=== PATIENT | male | born 1970 | race African-American/Black ===

== ENCOUNTER 2018-02-11 09:04 | Emergency (ER) | payer BC ==
--- NOTE | 2018-02-11 10:44 | EDPHYS ---
Physician Documentation [facility] Name: Jesusita Barker Age: 48 yrs Sex: Male : 1970 Arrival Date: 02/11/2018 Time: 09:07 Bed 11 Private MD: None, None ED Physician Tre sEcudero HPI: 02/11 11:02 This 48 yrs old Black Male presents to ER via Ambulatory with complaints of Swollen Ear.jr8 11:02 Onset: The symptoms/episode began/occurred acutely, yesterday. Associated signs and jr8 symptoms: The patient has no apparent associated signs or symptoms. Modifying factors: The patient symptoms are alleviated by nothing, the patient symptoms are aggravated by nothing. The patient has not experienced similar symptoms in the past. The patient has not recently seen a physician. Patient stated that he noticed his let ear to be swollen. No pain to touch or manipulation . 11:02 Modifying factors: The symptoms are alleviated by nothing, the symptoms are aggravated jr8 by nothing. Associated signs and symptoms: The patient has no apparent associated signs or symptoms. Severity of symptoms: At their worst the symptoms were mild in the emergency department the symptoms are unchanged. Historical: - Allergies: 09:20 NKA; iw - Home Meds: 09:20 lisinopril 10 mg Oral tab 1 tab once daily [Active]; aspirin 81 mg Oral TbEC 1 tab once iw daily [Active]; Prilosec Oral [Active]; - PMHx: 09:20 Hypertension; iw - PSHx: 09:20 None; iw - Immunization history:: Adult Immunizations not up to date. - Social history:: Smoking status: Patient uses tobacco products, denies chronic smoking, but will smoke occasionally. - Ebola Screening: : Patient negative for fever greater than or equal to 101.5 degrees Fahrenheit, and additional compatible Ebola Virus Disease symptoms Patient denies exposure to infectious person Patient denies travel to an Ebola-affected area in the 21 days before illness onset No symptoms or risks identified at this time. ROS: 11:02 Eyes: Negative for injury, pain, redness, and discharge, Neck: Negative for injury, jr8 pain, and swelling, Cardiovascular: Negative for chest pain, palpitations, and edema, Respiratory: Negative for shortness of breath, cough, wheezing, and pleuritic chest pain, Abdomen/GI: Negative for abdominal pain, nausea, vomiting, diarrhea, and constipation, Back: Negative for injury and pain, MS/Extremity: Negative for injury and deformity, Skin: Negative for injury, rash, and discoloration, Neuro: Negative for headache, weakness, numbness, tingling, and seizure. 11:02 ENT: Positive for swelling to left ear, Negative for drainage from ear(s), ear pain, tinnitus, nasal discharge, rhinorrhea, sinus congestion, sinus pain, sore throat, dental pain, difficulty swallowing, difficulty handling secretions. Exam: 11:02 Head/Face: Normocephalic, atraumatic. Eyes: Pupils equal round and reactive to light, jr8 extra-ocular motions intact. Lids and lashes normal. Conjunctiva and sclera are non-icteric and not injected. Cornea within normal limits. Periorbital areas with no swelling, redness, or edema. Neck: Trachea midline, no thyromegaly or masses palpated, and no cervical lymphadenopathy. Supple, full range of motion without nuchal rigidity, or vertebral point tenderness. No Meningismus. Cardiovascular: Regular rate and rhythm with a normal S1 and S2. No gallops, murmurs, or rubs. Normal PMI, no JVD. No pulse deficits. Respiratory: Lungs have equal breath sounds bilaterally, clear to auscultation and percussion. No rales, rhonchi or wheezes noted. No increased work of breathing, no retractions or nasal flaring. Abdomen/GI: Soft, non-tender, with normal bowel sounds. No distension or tympany. No guarding or rebound. No evidence of tenderness throughout. Back: No spinal tenderness. No costovertebral tenderness. Full range of motion. Skin: Warm, dry with normal turgor. Normal color with no rashes, no lesions, and no evidence of cellulitis. MS/ Extremity: Pulses equal, no cyanosis. Neurovascular intact. Full, normal range of motion. Neuro: Awake and alert, GCS 15, oriented to person, place, time, and situation. Cranial nerves II-XII grossly intact. Motor strength 5/5 in all extremities. Sensory grossly intact. Cerebellar exam normal. Normal gait. 11:02 ENT: Exam is negative for earache, ear discharge, TM abnormalities, nasal discharge, sinus tenderness, enlarged tonsils, pharyngitis, dental infection, External ear(s): fluctuant non erythematic region to left pinna. No bruising or external trauma noted . Vital Signs: 09:20 BP 163 / 98; Pulse 93; Resp 16; Temp 98.2; Pulse Ox 98% on R/A; Weight 91.63 kg; Height iw 5 ft. 9 in. (175.26 cm); Pain 0/10; 09:20 Body Mass Index 29.83 (91.63 kg, 175.26 cm) iw Procedures: 11:02 I \T\ D: Incision and drainage was performed for an abscess of the left pinna Prepped jr8 with Betadine, Incised with 18 G needle aspiration. Drained small amount bloody fluid. Dressing: sterile 4x4 gauze, pressure dressing aspirated 1 1/2 cc of blood. MDM: 09:25 Patient medically screened. jr8 10:42 Data reviewed: vital signs, nurses notes, and as a result, I will discharge patient. jr8 Data interpreted: Pulse oximetry: on room air is 98 %. Interpretation: normal. Counseling: I had a detailed discussion with the patient and/or guardian regarding: the historical points, exam findings, and any diagnostic results supporting the discharge/admit diagnosis, the need for outpatient follow up, an ENT specialist, to return to the emergency department if symptoms worsen or persist or if there are any questions or concerns that arise at home. Administered Medications: No medications were administered Disposition: 14:00 Co-signature as Attending Physician, Tre Escudero MD I agree with the assessment and shabnam plan of care. Disposition: 02/11/18 10:43 Discharged to Home. Impression: Hematoma of Vasquez . - Condition is Stable. - Discharge Instructions: Hematoma. - Prescriptions for Keflex 500 mg Oral Capsule - take 1 capsule by ORAL route every 8 hours for 5 days; 15 capsule. - Work release form, Medication Reconciliation Form, Thank You Letter, Antibiotic Education, Prescription Opioid Use form. - Follow up: Tati Howard MD; When: As needed; Reason: Recheck today's complaints, Continuance of care, Re-evaluation by your physician. - Problem is new. - Symptoms have improved. Signatures: Tre Escudero MD MD cha Williams, Irene, RN RN iw Gaetano Garcia PA PA jr8 Corrections: (The following items were deleted from the chart) 10:50 10:43 02/11/2018 10:43 Discharged to Home. Impression: Hematoma of Vasquez . Condition is iw Stable. Forms are Medication Reconciliation Form, Thank You Letter, Antibiotic Education, Prescription Opioid Use. Follow up: Tati Howard; When: As needed; Reason: Recheck today's complaints, Continuance of care, Re-evaluation by your physician. Problem is new. Symptoms have improved. jr8
--- NOTE | 2018-02-11 10:44 | ER ---
Nurse's Notes [facility] Name: Jesusita Barker Age: 48 yrs Sex: Male : 1970 Arrival Date: 02/11/2018 Time: 09:07 Bed 11 Private MD: None, None Diagnosis: Hematoma of [place]quez Presentation: 02/11 09:19 Presenting complaint: Patient states: swelling to left ear X 1 month. Transition of iw care: patient was not received from another setting of care. Onset of symptoms was December 2017. Risk Assessment: Do you want to hurt yourself or someone else? Patient reports no desire to harm self or others. Initial Sepsis Screen: Does the patient meet any 2 criteria? No. Patient's initial sepsis screen is negative. Does the patient have a suspected source of infection? No. Patient's initial sepsis screen is negative. Care prior to arrival: None. 09:19 Method Of Arrival: Ambulatory iw 09:19 Acuity: MALU 4 iw Historical: - Allergies: 09:20 NKA; iw - Home Meds: 09:20 lisinopril 10 mg Oral tab 1 tab once daily [Active]; aspirin 81 mg Oral TbEC 1 tab once iw daily [Active]; Prilosec Oral [Active]; - PMHx: 09:20 Hypertension; iw - PSHx: 09:20 None; iw - Immunization history:: Adult Immunizations not up to date. - Social history:: Smoking status: Patient uses tobacco products, denies chronic smoking, but will smoke occasionally. - Ebola Screening: : Patient negative for fever greater than or equal to 101.5 degrees Fahrenheit, and additional compatible Ebola Virus Disease symptoms Patient denies exposure to infectious person Patient denies travel to an Ebola-affected area in the 21 days before illness onset No symptoms or risks identified at this time. Screenin:21 Abuse screen: Denies threats or abuse. Denies injuries from another. Nutritional iw screening: No deficits noted. Tuberculosis screening: No symptoms or risk factors identified. Fall Risk None identified. Assessment: 09:21 General: Appears in no apparent distress. Behavior is calm, cooperative. Pain: iw Complains of pain in left ear. Neuro: Level of Consciousness is awake, alert, obeys commands, Oriented to person, place, time, situation, Moves all extremities. Full function. Cardiovascular: Patient's skin is warm and dry. Respiratory: Airway is patent Respiratory effort is even, unlabored. Derm: Skin is intact, is healthy with good turgor. Musculoskeletal: Range of motion: intact in all extremities. Vital Signs: 09:20 BP 163 / 98; Pulse 93; Resp 16; Temp 98.2; Pulse Ox 98% on R/A; Weight 91.63 kg; Height iw 5 ft. 9 in. (175.26 cm); Pain 0/10; 09:20 Body Mass Index 29.83 (91.63 kg, 175.26 cm) iw ED Course: 09:07 Patient arrived in ED. mr 09:08 None, None is Private Physician. mr 09:19 Triage completed. iw 09:20 Arm band placed on. iw 09:21 Glendy Dodd, RN is Primary Nurse. iw 09:21 Patient has correct armband on for positive identification. iw 09:21 No provider procedures requiring assistance completed. iw 09:25 [facility]. jr8 09:25 Tre Escudero MD is Attending Physician. jr8 10:43 Tati Howard MD is Referral Physician. jr8 10:47 Patient did not have IV access during this emergency room visit. iw Administered Medications: No medications were administered Outcome: 10:43 Discharge ordered by . jr8 10:48 Discharged to home ambulatory. iw 10:48 Condition: good 10:48 Discharge instructions given to patient, Instructed on discharge instructions, follow up and referral plans. medication usage, Demonstrated understanding of instructions, follow-up care, medications, Prescriptions given X 1. 10:50 Patient left the ED. iw Signatures: Chelita Ramirez Glendy Dodd, LEVON RN iw Gaetano Garcia PA PA jr8
== END 2018-02-11 10:50 | disposition home or self-care (01) ==
LOC: ER 09:04
PROC: 09913ZZ Drainage of Left External Ear, Percutaneous Approach (ICD-10-PCS; principal; 2018-02-11)
DX: H61.122 Hematoma of pinna, left ear (principal); I10 Essential (primary) hypertension; Z79.82 Long term (current) use of aspirin; Z79.899 Other long term (current) drug therapy; Z72.0 Tobacco use
CPT/HCPCS: 99282

== ENCOUNTER 2021-08-31 17:18 | Inpatient (IN) | payer BC ==
[2021-08-31] MEDS ORDERED: NA CHLORIDE 0.9% 1,000 ML ONE ×3 (18:04→18:54)
[2021-08-31 18:10] LABS: Absolute Lymphocytes (CBC) 2.5 K/uL (0.7-4.9); Hematocrit 53.4 % (39.6-49.0); Lymphocytes % 8.6 % (15.3-44.8)
[2021-08-31 18:26] LABS: Potassium 3.2 mmol/L (3.5-5.1)
--- NOTE | 2021-08-31 18:38 | EDPHYS ---
Physician Documentation [facility] Name: Jesusita Barker Age: 51 yrs Sex: Male : 1970 Arrival Date: 08/31/2021 Time: 17:19 Bed 12 Private MD: ED Physician Mega Turcios HPI: 08/31 18:10 This 51 yrs old Black Male presents to ER via Ambulatory with complaints of kb Dehydration, Body Aches, Chills. 18:10 Pt states he is coming in today for "heat exhaustion, dehydration, muscle cramps." kb States he had them for a week, took a week off of work, went back yesterday and the symptoms came back. 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 Onset: The symptoms/episode began/occurred 2 week(s) ago, and became worse today. Severity of symptoms: At their worst the symptoms were moderate in the emergency department the symptoms are unchanged. The patient has not experienced similar symptoms in the past. The patient has not recently seen a physician. Historical: - Allergies: 17:37 NKA; ll1 - PMHx: 17:37 Hypertension; ll1 - Immunization history:: Client reports having NOT received the Covid vaccine. - Social history:: Smoking status: Patient denies any tobacco usage or history of. ROS: 18:11 Respiratory: Negative for shortness of breath, cough, wheezing, and pleuritic chest kb pain. 18:11 Constitutional: Positive for body aches, chills. 18:11 MS/extremity: Positive for muscle cramps. 18:11 All other systems are negative. Exam: 18:11 Constitutional: This is a well developed, well nourished patient who is awake, alert, kb and in no acute distress. Head/Face: Normocephalic, atraumatic. ENT: Moist Mucous membranes Respiratory: Respirations even and unlabored. No increased work of breathing. Talking in full sentences Abdomen/GI: Soft, non-tender. No distention Skin: Warm, dry with normal turgor. Normal color. MS/ Extremity: Pulses equal, no cyanosis. Neurovascular intact. Full, normal range of motion. Neuro: Awake and alert, GCS 15, oriented to person, place, time, and situation. Moves all extremities. Normal gait. Psych: Awake, alert, with orientation to person, place and time. Behavior, mood, and affect are within normal limits. 18:11 Cardiovascular: Rate: tachycardic, Rhythm: regular, Pulses: no pulse deficits are appreciated. 18:38 ECG was reviewed by the Attending Physician. kb Vital Signs: 17:35 BP 125 / 89; Pulse 142; Resp 18; Temp 97.6; Pulse Ox 100% ; Pain 0/10; ll1 19:56 BP 164 / 100; Pulse 108; Resp 18; Pulse Ox 99% on R/A; lp1 MDM: 17:20 Patient medically screened. kb 18:09 Data reviewed: vital signs, nurses notes. Data interpreted: Pulse oximetry: on room air kb is 100 %. Interpretation: normal. 18:34 Counseling: I had a detailed discussion with the patient and/or guardian regarding: the kb historical points, exam findings, and any diagnostic results supporting the discharge/admit diagnosis, lab results, radiology results, the need for further work-up and treatment in the hospital. 18:36 Physician consultation: Jones BOBO was contacted at 18:36, regarding admission, kb to the telemetry unit. patient's condition, and will see patient in ED, shortly. 08/31 17:39 Order name: CBC with Diff kb 08/31 17:39 Order name: Basic Metabolic Panel; Complete Time: 18:28 kb 08/31 17:39 Order name: CPK; Complete Time: 18:28 kb 08/31 19:01 Order name: Urine Microscopic Only la 08/31 19:03 Order name: LFT's la 08/31 17:39 Order name: EKG; Complete Time: 17:40 kb 08/31 18:34 Order name: Chest Single View XRAY 08/31 19:04 Order name: Magnesium la1 08/31 19:57 Order name: RAD EDIA 08/31 20:00 Order name: Urine Dipstick-Ancillary EDIA 08/31 17:39 Order name: EKG - Nurse/Tech; Complete Time: 18:35 kb 08/31 17:39 Order name: IV Start; Complete Time: 18:04 kb 08/31 17:39 Order name: Orthostatics; Complete Time: 17:43 kb 08/31 18:31 Order name: Urine Dipstick-Ancillary (obtain specimen); Complete Time: 19:57 kb EC:38 Rate is 98 beats/min. Rhythm is regular. QRS [place] is Normal. AR interval is normal at kb 154 msec. QRS interval is normal at 78 msec. QT interval is normal at 418 msec. Administered Medications: 18:04 Drug: NS 0.9% 1000 ml Route: IV; Rate: 1000 ml; Site: right antecubital; ld1 18:38 Drug: NS 0.9% 1000 ml Route: IV; Rate: 1000 ml; Site: left antecubital; ld1 18:51 Drug: NS 0.9% 1000 ml Route: IV; Rate: 125 ml/hr; Site: right antecubital; ld1 Disposition: 19:23 Co-signature as Attending Physician, Mega KHAN was immediately available on-site ms3 in the Emergency Department for consultation in the care of the patient.. Disposition Summary: 08/31/21 18:37 Hospitalization Ordered Provider: John Kauffman Location: Telemetry/MedSurg (observation) kb Condition: Stable kb Problem: new kb Symptoms: are unchanged kb Bed/Room Type: Standard Hospitalization Status: Observation(08/31/21 18:37) kb Room Assignment: 223(08/31/21 19:34) Diagnosis - Acute kidney failure, unspecified kb - Dehydration kb - Elevated white blood cell count kb Forms: - Medication Reconciliation Form kb - SBAR form kb Signatures: Dispatcher [employer] Melva Herrera FNP-C FNP-Valerie Talley RN RN Inna Ledesma RN RN 1 Mega Turcios DO DO ms3 Rin Robledo RN RN ld1 Corrections: (The following items were deleted from the chart) 18:37 18:37 Inpatient Admission kb kb 19:34 18:37 kb cg
--- NOTE | 2021-08-31 18:38 | ER ---
Nurse's Notes [facility] Name: Jesusita Barker Age: 51 yrs Sex: Male : 1970 Arrival Date: 08/31/2021 Time: 17:19 Bed 12 Private MD: Diagnosis: Acute kidney failure, unspecified;Dehydration;Elevated white blood cell count Presentation: 08/31 17:35 Chief complaint: Patient states: Chills, dehydration, body aches for a few days. 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 Coronavirus screen: Vaccine status: Patient reports being unvaccinated. Client denies travel out of the [place] in the last 14 days. At this time, the client does not indicate any symptoms associated with coronavirus-19. Ebola Screen: Patient denies travel to an Ebola-affected area in the 21 days before illness onset. Initial Sepsis Screen: Does the patient meet any 2 criteria? HR > 90 bpm. Does the patient have a suspected source of infection? No. Patient's initial sepsis screen is negative. Risk Assessment: Do you want to hurt yourself or someone else? Patient reports no desire to harm self or others. Onset of symptoms was August 29, 2021. 17:35 Method Of Arrival: Ambulatory ll1 17:35 Acuity: MALU 2 ll1 Triage Assessment: 17:37 General: Appears uncomfortable, ill, Behavior is cooperative, appropriate for age. ll1 Pain: Denies pain. Neuro: Reports dizziness, weakness. Cardiovascular: Reports fatigue, lightheadedness. Historical: - Allergies: 17:37 NKA; ll1 - PMHx: 17:37 Hypertension; ll1 - Immunization history:: Client reports having NOT received the Covid vaccine. - Social history:: Smoking status: Patient denies any tobacco usage or history of. Screenin:40 Abuse screen: Denies threats or abuse. Denies injuries from another. Nutritional ld1 screening: No deficits noted. Tuberculosis screening: No symptoms or risk factors identified. Fall Risk None identified. Assessment: 17:43 Reassessment: cramping too bad to do orthostatic VS. Kayla Gallagher NP informed. . ll1 18:40 General: Appears in no apparent distress. uncomfortable, Behavior is cooperative, ld1 appropriate for age, anxious. Pain: Denies pain. Neuro: Level of Consciousness is awake, alert, obeys commands, Oriented to person, place, time, situation, Appropriate for age. Cardiovascular: Capillary refill < 3 seconds Patient's skin is warm and dry. Respiratory: Airway is patent Respiratory effort is even, unlabored. GI: Abdomen is flat, non-distended. : No signs and/or symptoms were reported regarding the genitourinary system. EENT: No signs and/or symptoms were reported regarding the EENT system. Derm: No signs and/or symptoms reported regarding the dermatologic system. Musculoskeletal: No signs and/or symptoms reported regarding the musculoskeletal system. Vital Signs: 17:35 BP 125 / 89; Pulse 142; Resp 18; Temp 97.6; Pulse Ox 100% ; Pain 0/10; ll1 19:56 BP 164 / 100; Pulse 108; Resp 18; Pulse Ox 99% on R/A; lp1 ED Course: 17:19 Patient arrived in ED. rg4 17:20 Melva Gallagher FNP-C [facility]. kb 17:20 Mega Turcios DO is Attending Physician. kb 17:37 Triage completed. ll1 17:38 Arm band placed on. ll1 18:04 Inserted saline lock: 20 gauge in right antecubital area, using aseptic technique. ld1 Blood collected. 18:34 Rin Robledo, LEVON is Primary Nurse. ld1 18:37 John Kauffman MD is Hospitalizing Provider. kb 18:40 Patient has correct armband on for positive identification. Placed in gown. Bed in low ld1 position. Call light in reach. Side rails up X2. nurse's companion on. Pulse ox on. NIBP on. Door closed. Noise minimized. Warm blanket given. 18:40 No provider procedures requiring assistance completed. ld1 19:46 Patient admitted, IV remains in place. lp1 Administered Medications: 18:04 Drug: NS 0.9% 1000 ml Route: IV; Rate: 1000 ml; Site: right antecubital; ld1 18:38 Drug: NS 0.9% 1000 ml Route: IV; Rate: 1000 ml; Site: left antecubital; ld1 18:51 Drug: NS 0.9% 1000 ml Route: IV; Rate: 125 ml/hr; Site: right antecubital; ld1 Medication: 18:40 VIS not applicable for this client. ld1 Outcome: 18:37 Decision to Hospitalize by Provider. kb 19:42 Condition: stable lp1 19:42 Instructed on the need for admit. 19:56 Admitted to Med/surg accompanied by tech, via wheelchair, room 223, with chart, Report lp1 called to LEVON Valdez 20:09 Patient left the ED. lp1 Signatures: Melva Gallagher, FOOTBALL PAD REPAIRER-C FOOTBALL PAD REPAIRER-CkCandelaria Chavira RN RN lp1 Pretty Jain rg4 Inna Ledesma RN RN ll1 Rin Robledo, LEVON RN ld1 Corrections: (The following items were deleted from the chart) 17:38 17:35 BP 125 / 89; Pulse 142bpm; Resp 18bpm; Temp 97.6F; Pain 0/10; ll1 ll1
--- NOTE | 2021-08-31 19:32 | P.HP ---
Certification for Inpatient Patient admitted to: Inpatient With expected LOS: >2 Midnights Patient will require the following post-hospital care: None Practitioner: I am a practitioner with admitting privileges, knowledge of patient current condition, hospital course, and medical plan of care. 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 He does report that he attempts to keep up with his hydration with oral fluids including Pedialyte and water on a daily basis. He was evaluated the emergency department found to be in acute renal failure with significant leukocytosis as well CPK slightly elevated urinalysis pending chest x-ray also pending. ED prior wishes to admit for further evaluation and management. Allergies No Known Allerg Allergy (Uncoded 11/26/16 16:22) Unknown - Past Medical/Surgical History -: Hypertension -: None Psychosocial/ Personal History: Lives at home with family - Family History Family History: Reviewed- Non-Contributory - Social History Smoking Status: Never smoker Alcohol use: No CD- Drugs: No Caffeine use: Yes Place of Residence: Home Review of Systems 10-point ROS is otherwise unremarkable General: Chills, Weakness, Malaise, Other (Muscle cramps) Physical Examination - Physical Exam General: Alert, In no apparent distress, Oriented x3 HEENT: Atraumatic, PERRLA, Other (Mucous membranes dry), EOMI, Sclerae nonicteric Neck: Supple, 2+ carotid pulse no bruit, No LAD, Without JVD or thyroid abnorma lity Respiratory: Clear to auscultation bilaterally, Normal air movement Cardiovascular: Regular rate/rhythm, Normal S1 S2 Gastrointestinal: Normal bowel sounds, No tenderness Musculoskeletal: No tenderness Integumentary: No rashes Neurological: Normal speech, Normal strength at 5/5 x4 extr, Normal tone, Normal affect - Studies Laboratory Data (last 24 hrs) 08/31/21 18:03: Sodium 137, Potassium 3.2 L, BUN 20 H, Creatinine 3.25 H, Glucose 134 H 08/31/21 18:03: WBC 29.3 H*, Hgb 17.8, Hct 53.4 H, Plt Count 479 H Assessment and Plan - Plan Assessment: Acute renal failure Leukocytosis Mild elevation in CPK Hypertension Hypokalemia Plan: Acute renal failure: Patient received 2 L fluid bolus in the ER continue with IV fluids overnight obtain renal ultrasound, nephrology consult. Urine electrolytes/protein pending. Patient denies any known history of chronic kidney disease reports that he has yearly physicals with labs which have been normal in the past. Appreciate further input from nephrology suspect this is related to heat exhaustion/dehydration. Leukocytosis: Suspect this is reactive chest x-ray and urinalysis pending ROS otherwise negative will obtain CRP/Pro-Wes levels//for pathology review. Mild elevation in CPK: Trend CPK, continue with IV fluids Hypertension: Patient takes lisinopril at home we will hold this medication given his acute renal failure if blood pressure is elevated will likely require additional medication possibly amlodipine. Hypokalemia: Replace as needed. DVT PPX: Heparin Code status: Full Discharge Plan: Home Plan to discharge in: 48 Hours - Advance Directives Does patient have a Living Will: No Does patient have a Durable POA for Healthcare: No - Code Status/Comfort Care Code Status Assessed: Yes (Full code) Critical Care: No Time Spent Managing Pts Care (In Minutes): 55
--- NOTE | 2021-08-31 19:55 | RAD REPORT ---
EXAM DESCRIPTION: Yudy Single View08/31/2021 7:19 pm CLINICAL HISTORY: Chills/hypertension COMPARISON: none FINDINGS: The lungs appear clear of acute infiltrate. The heart is normal size. Right-sided aortic arch IMPRESSION: No acute abnormalities displayed
[2021-08-31] MEDS ORDERED: ONDANSETRON 4 MG/2 ML VIAL IV PRN (19:56)
[2021-08-31] MEDS ORDERED: ACETAMINOPHEN 500 MG TAB PO PRN (19:56)
[2021-08-31 19:59] LABS: Urine Blood 1+ (Negative); Urine Glucose Negative (Negative); Urine Protein Trace (Negative); Urine Specific Gravity <=1.005 (1.005-1.030)
[2021-08-31 20:57] LABS: Calcium Oxalate Crystals- Ur FEW (NONE SEEN); Urine Amorphous Sediment 1+ /HPF (NONE SEEN); Urine Bacteria <20 /HPF (NONE SEEN); Urine Mucus HEAVY /HPF (NONE SEEN); Urine RBC NONE SEEN /HPF (NONE SEEN)
[2021-08-31] MEDS: HEPARIN 5000 UNIT/ML 1 ML VIAL SQ SCH (21:00)
[2021-08-31 21:48] LABS: Platelet Estimate ADEQ; White Blood Cell Scan OK (OK)
[2021-08-31] MEDS: NA CHLORIDE 0.9% 1,000 ML IV SCH (21:48)
[2021-08-31 21:49] LABS: Blood Morphology Comment NOTED (NOT SEEN); Poikilocytosis 2+
[2021-08-31] MEDS ORDERED: POTASSIUM CL SA 10 MEQ TAB PO ONE (22:33)
[2021-08-31 22:52] LABS: Albumin 5.3 g/dL (3.4-5.0); Bilirubin Direct 0.2 mg/dL (0-0.2); Bilirubin Total 0.7 mg/dL (0.2-1.0); Magnesium 2.2 mg/dL (1.8-2.4); Protein, Total 9.9 g/dL (6.4-8.2)
[2021-09-01] MEDS: NA CHLORIDE 0.9% 1,000 ML IV SCH ×5 (06:21→17:20)
--- NOTE | 2021-09-01 06:28 | EKG ---
Test Date: 2021-08-31 Test Time: 18:30:17 Talent Recruiter: GARFIELD MEASUREMENT RESULTS: Intervals: Rate: 98 AL: 154 QRSD: 78 QT: 328 QTc: 418 [place]: P: 69 AL: 154 QRS: 88 T: 35 INTERPRETIVE STATEMENTS: Normal sinus rhythm Nonspecific ST abnormality Abnormal ECG No previous ECG available for comparison Electronically Signed On 09-01-21 06:27:36 CDT by Tom Mcgarry
--- NOTE | 2021-09-01 06:48 | P.PN ---
Date of Service: 09/01/21 Subjective: improving, slight soreness in calves urine yellowish- slightly dark feeling better ROS: 10 point ROS as noted above, otherwise negative Physical exam GEN: Alert, oriented, NAD HEENT: Normal conjunctiva, sclera anicteric CV: Regular rate and rhythm, no edema Pulm: Nonlabored respirations on room air ABD: Soft, nontender, nondistended MSK: slight discomfort in b/l calves Integumentary: No rashes / lesions Neuro: Normal speech, normal affect Problem List Acute renal failure, rhabdo Leukocytosis Hypertension Hypokalemia continue IVF, s/p 2L bolus in ED CPK elevated, rhabdo, from heat exhaustion nephro consulted monitor UOP overall doing better monitor electrolytes Code: full Dispo: anticipate dc home in ~24hrs Time Spent Managing Pts Care (In Minutes): 35
[2021-09-01 06:58] LABS: Absolute Lymphocytes (CBC) 3.2 K/uL (0.7-4.9); Hematocrit 44.6 % (39.6-49.0); Lymphocytes % 18.4 % (15.3-44.8); RBC Red Blood Cell Count 5.02 M/uL (4.33-5.43)
[2021-09-01 07:19] LABS: Albumin 3.8 g/dL (3.4-5.0); Bilirubin Total 0.9 mg/dL (0.2-1.0); C-Reactive Protein 5.27 mg/L (<3.00); Magnesium 1.9 mg/dL (1.8-2.4); Potassium 4.1 mmol/L (3.5-5.1); Protein, Total 7.3 g/dL (6.4-8.2); Thyroid Stimulating Hormone 0.568 uIU/mL (0.360-3.740)
--- NOTE | 2021-09-01 07:46 | RAD REPORT ---
EXAM DESCRIPTION: US - Renal Ultrasound-Complete - 09/01/2021 5:25 am CLINICAL HISTORY: ARF COMPARISON: No comparisons FINDINGS: The right kidney measures 11.7 x 4.9 x 4.8 cm. The left kidney measures 10.1 x 4.9 x 4.3 cm. Renal cortical thickness and echogenicity are normal. No hydronephrosis or suspicious renal mass. Punctate 2 mm echogenic focus lower pole left kidney is probably a nonobstructing calyx calculus. No bladder wall thickening or mass. No intraluminal stone or mass. IMPRESSION: No hydronephrosis or suspicious renal mass. No other significant findings.
[2021-09-01] MEDS: HEPARIN 5000 UNIT/ML 1 ML VIAL SQ SCH ×2 (09:41→22:12)
[2021-09-01 12:22] VITALS: O2SAT 100
--- NOTE | 2021-09-01 14:19 | CON ---
Date of Consultation: 09/01/2021 Reason For Consult: Acute renal failure. History Of Present Illness: Mr. Barker is a 51-year-old male with past medical history significant f or history of hypertension, on lisinopril, who presented to the emergency room after he had noticed s ymptoms of heat exhaustion and cramps. 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 He does report that he attempts to lidya p up with his hydration and oral fluids as well as Pedialyte. When he was evaluated in the emergency room, he was found to have acute renal failure with significant leukocytosis as well as elevated CPK levels and hence Nephrology is being consulted. The patient states that he is feeling much better at this time. Denies any muscle pains or denies an y nausea, vomiting, or abdominal pain. Past Medical History: Significant for history of hypertension, on lisinopril. Family History: Noncontributory. Social History: No history of smoking or alcohol or drug use reported. Review of Systems: Positive for generalized weakness, malaise and muscle cramps. Denies any chest pain. Denies any abd ominal pain. Denies any nausea, vomiting, or diarrhea. All other review of systems are negative. Physical Examination: Vital Signs: At this time are showing temperature of 98.1, pulse rate of 82, respiratory rate of 16, and blood pressure 177/88. General: He appears in no acute distress. HEENT: Atraumatic head. Lungs: Clear to auscultation. Heart: Auscultation of heart revealed regular rate and rhythm. He is alert, awake, and oriented x3. No gross motor or neurological deficits were noted. Abdomen: Soft and nontender. No rebound or guarding was noted. No hepatosplenomegaly was noted. Extremities: Showed no evidence of edema. He has no signs of degeneration with moist oral mucosa at this time. Laboratory Data: Showing creatinine improving to 1.62 from 3.25, sodium of 4.1, improving from 3.2. CPK level was 3963. LFTs were within normal limits and CBC showed stable hemoglobin, hematocrit, an d platelet count. Current Medications: Have been reviewed and leukocytosis is improving at this time. The patient is getting IV fluids with normal saline at 150 cc an hour. Impression: Acute renal failure, likely secondary to dehydration. The patient's renal function is i mproving at this time. Continue IV fluids but at a lower rate and encourage p.o. intake, and monitor closely. He has been counseled on non-steroidal anti-inflammatory drugs use and renal disease risk factors and has been counseled on signs of dehydration in the future. At this time, his blood pressu res are running slightly high. I will go ahead and order amlodipine instead of lisinopril and advise d to hold off on lisinopril in the future given high risk of dehydration at this time. Plan: Overall, the patient is doing okay. Continue hydration at a lower rate. Monitor labs. Advis ed to change lisinopril to amlodipine and monitor blood pressures closely. He is okay to be discharg ed tomorrow if indices continue to improve. VV/MODL Voice ID: [id number] Report ID: [id number]
[2021-09-02] MEDS: NA CHLORIDE 0.9% 1,000 ML IV SCH (06:07)
[2021-09-02 07:04] LABS: Absolute Lymphocytes (CBC) 4.2 K/uL (0.7-4.9); Hematocrit 43.6 % (39.6-49.0); Lymphocytes % 35.9 % (15.3-44.8); MPV 8.4 fL (7.6-11.3); RBC Red Blood Cell Count 4.94 M/uL (4.33-5.43)
[2021-09-02 07:35] LABS: Albumin 3.8 g/dL (3.4-5.0); Bilirubin Total 0.7 mg/dL (0.2-1.0); Magnesium 1.9 mg/dL (1.8-2.4); Potassium 3.7 mmol/L (3.5-5.1); Protein, Total 7.3 g/dL (6.4-8.2)
[2021-09-02 08:51] VITALS: BP 198/94; TEMP 98
[2021-09-02] MEDS ORDERED: AMLODIPINE 5 MG TAB PO SCH (09:00)
[2021-09-02] MEDS: HEPARIN 5000 UNIT/ML 1 ML VIAL SQ SCH (09:00)
--- NOTE | 2021-09-02 14:22 | PN ---
Date of Progress Note: 09/02/2021 Subjective: Patient is seen and examined at bedside. He is doing very well. Denies any complaints. Objective: Vital Signs: Have been reviewed and are stable. General: He appears in no acute distress. Lungs: Clear. Abdomen: Soft. Auscultation of heart reveals regular rate and rhythm. Extremities: Showed no evidence of edema. Laboratory Data: Showing improved creatinine of 1.18. Creatine kinase is 3301. Other electrolytes are stable. CBC showing improved leukocytosis, stable hemoglobin, hematocrit, and platelet count. Current Medications: Reviewed. Impression: 1.Acute renal failure, likely secondary to dehydration, improving. 2.Uncontrolled hypertension, likely secondary to IV fluids. We will discontinue IV fluids. He is o n amlodipine. We will discontinue lisinopril also. 3.Rhabdomyolysis, improving. Patient has been counseled on precautions for heat exhaustion. VV/MODL Voice ID: [id number] Report ID: [id number]
--- NOTE | 2021-09-11 23:07 | P.DS ---
Admission Date: 08/31/21 Discharge Date: 09/02/21 Disposition: ROUTINE DISCHARGE Discharge Condition: GOOD Reason for Admission: Acute renal failure Consultations: Nephrology - Mary Lou Brief History of Present Illness: 51yo M, PMH: HTN. Presented to ED with symptoms of heat exhaution / muscle cramping. 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 He has been attempting to hydrate with oral fluids including pedialyte and water on a daily basis. In the ED, he was found to be in acute renal failure, leukocytosis, and elevated CPK. Hospital Course: Problem List Acute renal failure, rhabdo Leukocytosis, reactive Hypertension Hypokalemia Patient was found to be in acute renal failure with elevated CPK levels, consistent with rhabdomyolyisis secondary to heat exhaustion / dehydration. Patients symptoms and labwork improved significantly with IV fluid hydration. Nephrology was consulted, recommended avoiding lisnopril and switched to norvasc. Patient is prescribed norvasc on discharge. Stop lisinopril. Follow up with PCP within 1 week Follow up with Nephrology - Dr. Barreto in 2-3 weeks. Counselled on adequate hydration, avoidance/limiting heat exposure. Patient obtained hydration protocol from [facility] that he will follow going forward. Vital Signs/Physical Exam: Temp Pulse Resp BP Pulse Ox 98.0 F 73 16 198/94 H 100 09/02/21 08:00 09/02/21 09:57 09/02/21 08:00 09/02/21 09:57 09/02/21 08:00 Physical exam GEN: Alert, oriented, NAD HEENT: Normal conjunctiva, sclera anicteric CV: Regular rate and rhythm, no edema Pulm: Nonlabored respirations on room air ABD: Soft, nontender, nondistended MSK: no tenderness Integumentary: No rashes / lesions Neuro: Normal speech, normal affect Laboratory Data at Discharge: WBC 11.7 K/uL (4.3-10.9) H D 09/02/21 06:16 Hgb 14.9 g/dL (13.6-17.9) 09/02/21 06:16 Hct 43.6 % (39.6-49.0) 09/02/21 06:16 Plt Count 342 K/uL (152-406) 09/02/21 06:16 Sodium 140 mmol/L (136-145) 09/02/21 06:16 Potassium 3.7 mmol/L (3.5-5.1) 09/02/21 06:16 BUN 12 mg/dL (7-18) 09/02/21 06:16 Creatinine 1.18 mg/dL (0.55-1.3) 09/02/21 06:16 Glucose 93 mg/dL (74-106) 09/02/21 06:16 Magnesium 1.9 mg/dL (1.8-2.4) 09/02/21 06:16 Total Bilirubin 0.7 mg/dL (0.2-1.0) 09/02/21 06:16 AST 104 U/L (15-37) H 09/02/21 06:16 ALT 64 U/L (12-78) 09/02/21 06:16 Alkaline Phosphatase 45 U/L (45-117) 09/02/21 06:16 Triglycerides 151 mg/dL (<150) H 09/01/21 06:36 Cholesterol 196 mg/dL (<200) 09/01/21 06:36 HDL Cholesterol 44 mg/dL (40-60) 09/01/21 06:36 Cholesterol/HDL Ratio 4.45 09/01/21 06:36 Home Medications: Amlodipine [Norvasc*] 5 mg PO DAILY 30 Days #30 tab 09/02/21 New Medications: Amlodipine [Norvasc*] 5 mg PO DAILY 30 Days #30 tab Physician Discharge Instructions: Patient was found to be in acute renal failure with elevated CPK levels, consistent with rhabdomyolyisis secondary to heat exhaustion / dehydration. Patients symptoms and labwork improved significantly with IV fluid hydration. Nephrology was consulted, recommended avoiding lisnopril and switched to norvasc. Patient is prescribed norvasc on discharge. Stop lisinopril. Follow up with PCP within 1 week Follow up with Nephrology - Dr. Barreto in 2-3 weeks. Counselled on adequate hydration, avoidance/limiting heat exposure. Patient obtained hydration protocol from [facility] that he will follow going forward. Diet: Regular Activity: Ad jennifer Followup: NONE,NONE [Primary Care Provider] - Time spent managing pt's care (in minutes): 40
== END 2021-09-02 10:10 | disposition home or self-care (01) | DRG 683 ==
LOC: ER 17:18 → ERHOLD 18:58 → 2ND 19:47
PROVIDERS: ADMIT Hospitalist; ATTEND Hospitalist
DX: N17.9 Acute kidney failure, unspecified (principal); M62.82 Rhabdomyolysis; I10 Essential (primary) hypertension; E87.6 Hypokalemia; E86.0 Dehydration; X30.XXXA Exposure to excessive natural heat, initial encounter
CPT/HCPCS: 36415; 71045; 76770; 80048; 80053; 80061; 80076; 81003; 81015; 82550; 82570; 83735; 84145; 84156; 84439; 84443; 85025; 86140; 93005; 99285; J1644; J7030

== ENCOUNTER 2022-10-11 19:01 | Emergency (ER) | payer BC ==
[2022-10-11] MEDS ORDERED: LIDOCAINE 1% MPF 30 ML VIAL ONE (19:37)
--- NOTE | 2022-10-11 20:16 | ER ---
Nurse's Notes [facility] Name: Jesusita Barker Age: 52 yrs Sex: Male : 1970 Arrival Date: 10/11/2022 Time: 19:01 Bed 4 Private MD: Diagnosis: Laceration without foreign body of lip Presentation: 10/11 19:16 Coronavirus screen: Vaccine status: Patient reports being unvaccinated. Ebola Screen: kd3 No symptoms or risks identified at this time. Complicating Factors: There are no complicating factors for this patient. Initial Sepsis Screen: Does the patient meet any 2 criteria? No. Patient's initial sepsis screen is negative. Does the patient have a suspected source of infection? No. Patient's initial sepsis screen is negative. Risk Assessment: Do you want to hurt yourself or someone else? Patient reports no desire to harm self or others. Onset of symptoms was October 11, 2022. 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 I think that's what made me pass out. I am scared to eat with all the stuff they're putting in the food nowadays. When i passed out i busted my lip on the kitchen counter. I think my front tooth is loose. Triage Assessment: 19:16 General: Appears uncomfortable, Behavior is calm, cooperative. kd3 19:17 Pain: Complains of pain in upper vermilion border and upper lip. Injury Description: kd3 Laceration sustained to upper vermilion border and upper lip. Historical: - Allergies: 19:16 NKA; kd3 - PMHx: 19:16 Hypertension; kd3 - Immunization history:: Adult Immunizations up to date. - Social history:: Smoking status: Patient denies any tobacco usage or history of. Smoking status: Reported history of juuling and/or vaping. - Family history:: not pertinent. - Hospitalizations: : No recent hospitalization is reported. Screenin:39 [facility] ED Fall Risk Assessment (Adult) History of falling in the last 3 months, kd3 including since admission Yes- single mechanical fall (1 pt) Confusion or Disorientation No (0 pts) Intoxicated or Sedated No (0 pts) Impaired Gait No (0 pts) Mobility Assist Device Used No (0 pt) Altered Elimination No (0 pt) Score/Fall Risk Level 0 - 2 = Low Risk Maintained a safe environment. Abuse screen: Denies threats or abuse. Denies injuries from another. Nutritional screening: No deficits noted. Tuberculosis screening: No symptoms or risk factors identified. Assessment: 20:40 Musculoskeletal: Swelling present in upper lip. Injury Description: Laceration is clean.kd3 Vital Signs: 19:15 Pulse 74; Resp 16; Temp 98.2(TE); Pulse Ox 100% on R/A; Weight 81.65 kg; kd3 19:17 BP 138 / 89; kd3 ED Course: 19:06 Patient arrived in ED. kj1 19:16 Triage completed. kd3 19:17 Arm band placed on right wrist. kd3 19:26 Jordan Kauffman MD is Attending Physician. rn 20:35 Alissa Cameron RN is Primary Nurse. kd3 20:39 No provider procedures requiring assistance completed. Patient did not have IV access kd3 during this emergency room visit. 20:40 Patient has correct armband on for positive identification. Provided Education on: . 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 Exp: kd3 03/03/2023. Lot #: [id number]. } Route: IM; Site: right deltoid; 20:49 Drug: Lidocaine Infiltration (1 %) 1 vials Volume: 20 ml; Route: Infiltration; kd3 Medication: 20:40 VIS not applicable for this client. kd3 20:49 Vaccine Information Statement (VIS) provided today. Questions and/or concerns kd3 addressed. VIS edition date: October 29, 2020. Outcome: 20:16 Discharge ordered by . rn 20:39 Discharged to home ambulatory. kd3 20:39 Condition: stable 20:39 Discharge instructions given to patient, Instructed on discharge instructions, follow up and referral plans. medication usage, Demonstrated understanding of instructions, follow-up care, medications, Prescriptions given X 2. 20:50 Patient left the ED. kd3 Signatures: Jordan Kauffman MD MD rn Jackson, Kandis kj1 Alissa Cameron RN RN kd3
--- NOTE | 2022-10-11 20:17 | EDPHYS ---
Physician Documentation [facility] Name: Jesusita Barker Age: 52 yrs Sex: Male : 1970 Arrival Date: 10/11/2022 Time: 19:01 Bed 4 Private MD: ED Physician Jordan Kauffman HPI: 10/11 20:12 This 52 yrs old Black Male presents to ER via Ambulatory with complaints of Laceration rn To Lip. 20:12 The patient has a laceration related to: falling occurred at home. The laceration(s) rn is(are) located on the upper lip. Onset: The symptoms/episode began/occurred just prior to arrival. The patient has not experienced similar symptoms in the past. Pt reports took a hit from a vape, got lightheaded, fell, struck lip and cut it. No blood thinners. already had chipped front tooth, but now right upper front tooth is loose. . Historical: - Allergies: 19:16 NKA; kd3 - PMHx: 19:16 Hypertension; kd3 - Immunization history:: Adult Immunizations up to date. - Social history:: Smoking status: Patient denies any tobacco usage or history of. Smoking status: Reported history of juuling and/or vaping. - Family history:: not pertinent. - Hospitalizations: : No recent hospitalization is reported. ROS: 20:12 Constitutional: Negative for fever, chills, and weight loss, ENT: + upper lip rn laceration Neck: Negative for injury, pain, and swelling, Neuro: Negative for headache, weakness, numbness, tingling, and seizure. Exam: 20:12 Constitutional: This is a well developed, well nourished patient who is awake, alert, rn and in no acute distress. ENT: + upper lip laceration that is through and through, approx 4 cm total, does not cross theodore border. No foreign bodies, no active bleeding. Vital Signs: 19:15 Pulse 74; Resp 16; Temp 98.2(TE); Pulse Ox 100% on R/A; Weight 81.65 kg; kd3 19:17 BP 138 / 89; kd3 Laceration: 20:12 Wound Repair of 4cm ( 1.6in ) subcutaneous laceration to upper lip. Distal rn neuro/vascular/tendon intact. Anesthesia: Wound infiltrated with 3 mls of 1% lidocaine. Wound prep: Moderate cleansing with betadine with hibiclenz by me. Skin closed with 4 5-0 fast absorbing gut using interrupted sutures and sterile technique. Mucosal layer closed with 4 4-0 chromic gut using interrupted sutures and sterile technique. Patient tolerated well. MDM: 19:26 Patient medically screened. rn 20:12 Differential diagnosis: superficial laceration. Data reviewed: vital signs, nurses rn notes, and as a result, I will discharge patient. Counseling: I had a detailed discussion with the patient and/or guardian regarding: the historical points, exam findings, and any diagnostic results supporting the discharge/admit diagnosis, the need for outpatient follow up, to return to the emergency department if symptoms worsen or persist or if there are any questions or concerns that arise at home. Special discussion: I discussed with the patient/guardian in detail that at this point there is no indication for admission to the hospital. It is understood, however, that if the symptoms persist or worsen the patient needs to return immediately for re-evaluation. Based on the history and exam findings, there is no indication for further emergent testing or inpatient evaluation. I discussed with the patient/guardian the need to see a dentist for further evaluation of the symptoms. 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 Exp: kd3 03/03/2023. Lot #: [id number]. } Route: IM; Site: right deltoid; 20:49 Drug: Lidocaine Infiltration (1 %) 1 vials Volume: 20 ml; Route: Infiltration; kd3 Disposition Summary: 10/11/22 20:16 Discharge Ordered Location: Home rn Problem: new rn Symptoms: have improved rn Condition: Stable rn Diagnosis - Laceration without foreign body of lip rn Followup: rn - With: Private Physician - When: As needed - Reason: Recheck today's complaints, Re-evaluation by your physician Discharge Instructions: - Discharge Summary Sheet rn - Facial Laceration rn - Sutured application internship Forms: - Medication Reconciliation Form rn - Thank You Letter rn - Antibiotic service learning coordinator - Prescription Opioid Use rn - Patient Portal Instructions rn Prescriptions: - Augmentin 875-125 mg Oral Tablet - take 1 tablet by ORAL route every 12 hours for 10 days; 20 tablet; Refills: 0, rn Product Selection Permitted - Tramadol 50 mg Oral Tablet - take 1 tablet by ORAL route every 8 hours as needed; 12 tablet; Refills: 0, rn Product Selection Permitted Signatures: Jordan Kauffman MD MD rn Doucette, Kyli, RN RN kd3
[2022-10-11] MEDS ORDERED: TDAP (DIPHTH,PERTUSS(ACELL),TET VAC) 0.5 ML VIAL IMVAC ONE (20:43)
[2022-10-11 20:54] VITALS: TEMP 98.2; O2SAT 100
[2022-10-11 20:55] VITALS: BP 138/89
== END 2022-10-11 20:50 | disposition home or self-care (01) ==
LOC: ER 19:01
PROC: 0HQ1XZZ Repair Face Skin, External Approach (ICD-10-PCS; principal; 2022-10-11)
DX: S01.511A Laceration without foreign body of lip, initial encounter (principal); Z23 Encounter for immunization
CPT/HCPCS: 12013; J2001